=== PATIENT | female | born 1975 | race Caucasian/White ===

== ENCOUNTER 2022-10-10 09:16 | Emergency (ER) | payer BC ==
[2022-10-10] MEDS ORDERED: Ondansetron ODT 4 MG TAB ONE (10:18)
== END 2022-10-10 10:30 | disposition home or self-care (01) ==
LOC: BURERS 09:16
DX: J11.1 Influenza due to unidentified influenza virus with other respiratory manifestations (principal); Z20.822 Contact with and (suspected) exposure to COVID-19
CPT/HCPCS: 87804; 93005; Q0162; U0003; U0005